=== PATIENT | female | born 1980 | race American Indian/Alaskan Native ===

== ENCOUNTER 2017-07-31 07:04 | Inpatient (IN) | payer SELFPAY ==
[2017-07-31 07:42] LABS: Basophils # (Auto) 0.1 K/mm3 (0.0-0.1); Basophils % (Auto) 1.2 % (0.0-1.8); Eosinophils # (Auto) 0.3 K/mm3 (0.0-0.4); Eosinophils % (Auto) 2.9 % (0.0-4.3); Hematocrit 39.2 % (30.3-42.9); Hemoglobin 13.2 gm/dl (10.1-14.3); Lymphocytes # (Auto) 2.9 K/mm3 (1.2-5.4); Lymphocytes % (Auto) 28.7 % (13.4-35.0); Mean Corpuscular HGB Conc 34 % (30-34); Mean Corpuscular Hemoglobin 31 pg (28-32); Mean Corpuscular Volume 90 fl (79-97); Monocytes # (Auto) 0.7 K/mm3 (0.0-0.8); Monocytes % (Auto) 7.3 % (0.0-7.3); Platelet Count 392 K/mm3 (140-440); Red Blood Count 4.34 M/mm3 (3.65-5.03); Red Cell Distribution Width 13.7 % (13.2-15.2)
[2017-07-31] MEDS ORDERED: ROXICODONE PO ONE (08:02)
[2017-07-31 08:06] LABS: Alanine Aminotransferase 11 units/L (7-56); Albumin 3.6 g/dL (3.9-5); BUN/Creatinine Ratio 14; Blood Urea Nitrogen 10 mg/dL (7-17); Calcium 8.7 mg/dL (8.4-10.2); Hemolysis Index 10
[2017-07-31 08:40] LABS: INR 0.89 (0.87-1.13)
--- NOTE | 2017-07-31 08:47 | Ultrasound Report ---
Sonogram right upper quadrant: History: Abdominal pain. Findings: Aortic diameter 1.5 cm. Normal liver. Gallbladder wall thickness 3.5 mm. Multiple calculi in the gallbladder. No intrahepatic or extrahepatic dilatation. Common bile duct diameter 2.2 mm. Right kidney 12.2 x 4.9 x 5 cm. Cortical thickness 1.3 cm. Normal pancreas. Impression Multiple calculi in thick walled gallbladder.
[2017-07-31] MEDS ORDERED: TORADOL IV ONE (09:39)
[2017-07-31] MEDS ORDERED: NACL 0.9% 500 ML 500 ML IV ONE (09:39)
[2017-07-31] MEDS ORDERED: SUBLIMAZE IV ONE (09:39)
--- NOTE | 2017-07-31 09:40 | Emergency Department Report ---
ED General Adult HPI - General Chief complaint: Abdominal Pain Stated complaint: BACK PAIN Time Seen by Provider: 07/31/17 08:01 Source: patient, RN notes reviewed Mode of arrival: Ambulatory Limitations: No Limitations - History of Present Illness Initial comments: This is a 37-year-old female. The patient is previously unknown to this provider. She does not have a primary care doctor. Patient presents to the ER with 2 complaints. Her first complaint is right-sided paralumbar back pain which radiates down to the right lower quadrant. It is achy and sharp. With palpation, range of motion. It decreases with rest. The patient also complains of right upper quadrant pain. The pain is achy. It increases with palpation. It decreases with rest. Denies chest pain, shortness of breath, urinary symptoms, saddle anesthesia. Denies constipation. -: Gradual Location: back, abdomen Radiation: abdomen, flank Severity scale (0 -10): 10 Quality: aching Consistency: intermittent Improves with: rest Worsens with: movement Associated Symptoms: other (abdominal pain, back pain). denies: confusion, chest pain, cough, diaphoresis, fever/chills, headaches, loss of appetite, malaise, nausea/vomiting, rash, seizure, shortness of breath, weakness - Related Data Home Medications Medication Instructions Recorded Confirmed Last Taken No Known Home Medications [No 07/31/17 07/31/17 Unknown Reported Home Medications] Allergies Allergy/AdvReac Type Severity Reaction Status Date / Time No Known Allergies Allergy Unverified 07/31/17 07:13 ED Review of Systems ROS: Stated complaint: BACK PAIN Other details as noted in HPI Comment: All other systems reviewed and negative Constitutional: denies: chills, fever Eyes: denies: eye pain, eye discharge, vision change ENT: denies: ear pain, throat pain Respiratory: denies: cough, shortness of breath, wheezing Cardiovascular: denies: chest pain, palpitations Endocrine: no symptoms reported Gastrointestinal: denies: abdominal pain, nausea, diarrhea Genitourinary: denies: urgency, dysuria, discharge Musculoskeletal: denies: back pain, joint swelling, arthralgia Skin: denies: rash, lesions Neurological: denies: headache, weakness, paresthesias Psychiatric: denies: anxiety, depression Hematological/Lymphatic: denies: easy bleeding, easy bruising ED Past Medical Hx - Past Medical History Previous Medical History?: Yes - Surgical History Past Surgical History?: Yes Additional Surgical History: c-sect x3, tubal ligation - Social History Smoking Status: Never Smoker Substance Use Type: None - Medications Home Medications: Home Medications Medication Instructions Recorded Confirmed Last Taken Type No Known Home Medications [No 07/31/17 07/31/17 Unknown History Reported Home Medications] ED Physical Exam - General Limitations: No Limitations General appearance: alert, in no apparent distress - Head Head exam: Present: atraumatic, normocephalic - Eye Eye exam: Present: normal appearance, EOMI. Absent: nystagmus - ENT ENT exam: Present: normal exam, normal orophraynx, mucous membranes moist, normal external ear exam - Neck Neck exam: Present: normal inspection, full ROM - Respiratory Respiratory exam: Present: normal lung sounds bilaterally. Absent: respiratory distress - Cardiovascular Cardiovascular Exam: Present: regular rate, normal rhythm, normal heart sounds. Absent: bradycardia, tachycardia, irregular rhythm, systolic murmur, diastolic murmur, rubs, gallop - GI/Abdominal GI/Abdominal exam: Present: soft, tenderness (there is no right upper quadrant tenderness. There is negative Meza sign. There is right lower quadrant tenderness to deep palpation.), normal bowel sounds. Absent: distended, guarding, rebound, rigid, pulsatile mass - External exam: Present: normal external exam, other (escorted by GIULIANA Carrillo) Speculum exam: Present: normal speculum exam. Absent: cervical discharge, vaginal bleeding Bi-manual exam: Present: normal bi-manual exam. Absent: cervical motion tendernes, adnexal tenderness, adnexal mass, uterine enlargement, uterine tenderness - Extremities Exam Extremities exam: Present: normal inspection, full ROM, normal capillary refill. Absent: pedal edema, joint swelling, calf tenderness - Back Exam Back exam: Present: normal inspection, full ROM, tenderness (there is reproducible right sided paralumbar back pain. There is reproducible right- sided paralumbar tenderness. There is no midline spinal tenderness.), paraspinal tenderness. Absent: CVA tenderness (R), vertebral tenderness - Neurological Exam Neurological exam: Present: alert, oriented X3, CN II-XII intact, normal gait, other (Extraocular movements intact. Tongue midline. No facial droop. Facial sensation intact to light touch in the V1, V2, V3 distribution bilaterally. 5 and 5 strength in 4 extremities.. Sensation is intact to light touch in 4 extremities.). Absent: motor sensory deficit - Psychiatric Psychiatric exam: Present: normal affect, normal mood - Skin Skin exam: Present: warm, dry, intact, normal color. Absent: rash ED Course Vital Signs 07/31/17 07:06 Temperature 98.4 F Pulse Rate 79 Respiratory 18 Rate Blood Pressure 117/71 O2 Sat by Pulse 100 Oximetry - Reevaluation(s) Reevaluation #1: 07/31/17 11:06 Differential diagnosis, including but not limited to: Appendicitis, renal colic , biliary colic, pyelonephritis, cholecystitis, mechanical back pain Assessment and plan: 37-year-old female with back pain, right lower quadrant pain, right upper quadrant pain. There is right lower quadrant tenderness. There is no right upper quadrant tenderness. Gynecologic examination is benign. Ultrasound of the right upper quadrant demonstrates gallstones with a thickened gallbladder wall, with no pericholecystic fluid. The patient does not have physical exam findings consistent with a Meza sign. Pelvic ultrasound and nonpressured evidence of ovarian torsion or ovarian cyst. CT scan of the abdomen and pelvis is pending. We will discuss with general surgery. 07/31/17 11:07 Reevaluation #2: 07/31/17 12:36 CT scan negative. napper tender. Patient does not have insurance. The patient is not reliable to follow-up. Case discussed with general surgeon on-call, . She will see the patient in consultation. Empiric antibiotics ordered. The Hospital physician is paged to arrange admission. - Consultations Consultation #1: 07/31/17 13:05 Dr. Ron accepted the patient to the medical service. ED Medical Decision Making - Lab Data Result diagrams: 07/31/17 07:21 07/31/17 07:21 Vital Signs 07/31/17 07:06 Temperature 98.4 F Pulse Rate 79 Respiratory 18 Rate Blood Pressure 117/71 O2 Sat by Pulse 100 Oximetry Labs 07/31/17 07/31/17 07/31/17 07:21 07:21 07:21 WBC 9.9 RBC 4.34 Hgb 13.2 Hct 39.2 MCV 90 MCH 31 MCHC 34 RDW 13.7 Plt Count 392 Lymph % (Auto) 28.7 Harnett % (Auto) 7.3 Eos % (Auto) 2.9 Baso % (Auto) 1.2 Lymph # 2.9 Harnett # 0.7 Eos # 0.3 Baso # 0.1 Seg Neutrophils % 59.9 Seg Neutrophils # 6.0 PT INR Sodium 137 Potassium 4.5 Chloride 101.7 Carbon Dioxide 26 Anion Gap 14 BUN 10 Creatinine 0.7 Estimated GFR > 60 BUN/Creatinine Ratio 14 Glucose 125 H Calcium 8.7 Total Bilirubin 0.20 AST 16 ALT 11 Alkaline Phosphatase 70 Total Creatine Kinase Total Protein 7.2 Albumin 3.6 L Albumin/Globulin Ratio 1.0 Lipase HCG, Qual Negative Urine Color Urine Turbidity Urine pH Ur Specific [place] Urine Protein Urine Glucose (UA) Urine Ketones Urine Blood Urine Nitrite Urine Bilirubin Urine Urobilinogen Ur Leukocyte Esterase Urine WBC (Auto) Urine RBC (Auto) U Epithel Cells (Auto) Urine Bacteria (Auto) Urine Mucus 07/31/17 07/31/17 07/31/17 07:21 07:31 08:22 WBC RBC Hgb Hct MCV MCH MCHC RDW Plt Count Lymph % (Auto) Harnett % (Auto) Eos % (Auto) Baso % (Auto) Lymph # H[place]ett # Eos # Baso # Seg Neutrophils % Seg Neutrophils # PT 12.5 INR 0.89 Sodium Potassium Chloride Carbon Dioxide Anion Gap BUN Creatinine Estimated GFR BUN/Creatinine Ratio Glucose Calcium Total Bilirubin AST ALT Alkaline Phosphatase Total Creatine Kinase 169 H Total Protein Albumin Albumin/Globulin Ratio Lipase 21 HCG, Qual Urine Color Urine Turbidity Urine pH Ur Specific [place] Urine Protein Urine Glucose (UA) Urine Ketones Urine Blood Urine Nitrite Urine Bilirubin Urine Urobilinogen Ur Leukocyte Esterase Urine WBC (Auto) Urine RBC (Auto) U Epithel Cells (Auto) Urine Bacteria (Auto) Urine Mucus 07/31/17 09:15 WBC RBC Hgb Hct MCV MCH MCHC RDW Plt Count Lymph % (Auto) Harnett % (Auto) Eos % (Auto) Baso % (Auto) Lymph # Harnett # Eos # Baso # Seg Neutrophils % Seg Neutrophils # PT INR Sodium Potassium Chloride Carbon Dioxide Anion Gap BUN Creatinine Estimated GFR BUN/Creatinine Ratio Glucose Calcium Total Bilirubin AST ALT Alkaline Phosphatase Total Creatine Kinase Total Protein Albumin Albumin/Globulin Ratio Lipase HCG, Qual Urine Color Yellow Urine Turbidity Clear Urine pH 6.0 Ur Specific [place] 1.009 Urine Protein <15 mg/dl Urine Glucose (UA) Neg Urine Ketones Neg Urine Blood Neg Urine Nitrite Neg Urine Bilirubin Neg Urine Urobilinogen < 2.0 Ur Leukocyte Esterase Neg Urine WBC (Auto) 1.0 Urine RBC (Auto) 1.0 U Epithel Cells (Auto) 10.0 Urine Bacteria (Auto) 1+ Urine Mucus Few - Radiology Data Radiology results: report reviewed, image reviewed Pelvic ultrasound M Stritch no evidence of ovarian torsion. Right upper quadrant ultrasound demonstrates thickened gallbladder wall with no pericholecystic fluid, multiple gallbladder stones. Critical care attestation.: If time is entered above; I have spent that time in minutes in the direct care of this critically ill patient, excluding procedure time. ED Disposition Clinical Impression: Biliary colic Disposition: OP ADMIT IP TO THIS HOSP Is pt being admited?: Yes Condition: Good Instructions: Abdominal Pain (ED) Referrals: PRIMARY CARE, [Primary Care Provider] - 3-5 Days
[2017-07-31 09:47] LABS: Bacteria,Urine 1+ /HPF (Negative); Bilirubin,Urine NEG (Negative); Blood,Urine NEG (Negative); Color,Urine Yellow (Yellow); Mucus,Urine FEW /HPF; Protein,Urine <15 mg/dL mg/dL (Negative); Urobilinogen,Urine < 2.0 mg/dL (<2.0)
--- NOTE | 2017-07-31 10:33 | Ultrasound Report ---
Pelvic and transvaginal sonography: History: Right lower quadrant abdominal pain. Findings: Uterus rate is 1.1 x 4.2 x 5.1 cm. Endometrial thickness is 11 mm. No mass within the endometrium. No fluid. Right ovary 3.7 x 2.1 x 2.1 cm. Cyst in the right ovary measures 1.2 cm and probably represents follicle. The left ovary 2.5 x 1.5 x 1.6 cm cyst at the left ovary measures 0.9 cm. Nabothian cysts in the cervix. Impression: Bilateral ovarian cysts/follicles.
--- NOTE | 2017-07-31 12:10 | Cat Scan Report ---
CT scan of abdomen and pelvis with IV contrast: History: Right lower quadrant pain. Findings: Normal lung bases. No pleural pericardial effusion. Normal liver spleen pancreas and gallbladder. Normal venous kidney parenchyma and bladder. No free intraperitoneal fluid or air. No evidence of adenopathy. Normal. Gaseous colon with moderate volume stool in colon. No significant bowel distention. Normal appendix. No evidence of diverticulitis. Impression: Gaseous colon with stool in colon. No evidence of appendicitis or diverticulitis.
[2017-07-31] MEDS ORDERED: ZOSYN/NS 4.5GM/100ML 4.5 GM/100 ML VIAL IV SCH (13:00)
--- NOTE | 2017-07-31 13:00 | History and Physical Report ---
History of Present Illness Chief complaint: My stomach hurts History of present illness: 37 YO Female with Obesity, presents to ED for evaluation. Pt states that she has experienced right sided abdominal pain for the past 3 days with persistent symptoms over the same time frame. Pt states that pain is 10/10, localized to the right side and radiates to the right flank, achy, sharp, worsening with movement. Pt seen and evaluated in ED and found to have symptomatic cholelithiasis. Surgery consulted in ED for surgical intervention. Pt denies fever, chills, CP, Palpitations, productive cough, hematemesis, ingestion of food/water from new/different sources. Past History Past Medical History: other (Obesity) Past Surgical History: , Other (tubal ligation) Social history: single Family history: hypertension Medications and Allergies Allergies Allergy/AdvReac Type Severity Reaction Status Date / Time No Known Allergies Allergy Unverified 07/31/17 07:13 Home Medications Medication Instructions Recorded Confirmed Last Taken Type No Known Home Medications [No 07/31/17 07/31/17 Unknown History Reported Home Medications] Active Meds: Active Medications Piperacillin Sod/Tazobactam Sod (Zosyn/Ns 4.5gm/100ml) 4.5 gm in 100 mls @ 200 mls/hr IV ONCE ELDA Review of Systems Constitutional: no weight loss, no weight gain, no fever, no chills Ears, nose, mouth and throat: no ear pain, no ear discharge, no tinnitis, no decreased hearing, no nose pain, no nasal congestion Breasts: no change in shape, no swelling, no mass Cardiovascular: no chest pain, no orthopnea, no palpitations, no rapid/ irregular heart beat, no edema, no syncope Respiratory: no cough, no cough with sputum, no excessive sputum, no hemoptysis , no shortness of breath Gastrointestinal: abdominal pain, no nausea, no vomiting, no constipation, no hematemesis, no coffee ground emesis, no BRBPR, no melena, no hematochezia, no loss of appetite Genitourinary Female: flank pain, no pelvic pain, no menorrhagia, no dysuria, no urinary frequency, no urgency Rectal: no pain, no incontinence, no bleeding Musculoskeletal: no neck stiffness, no neck pain, no shooting arm pain, no arm numbness/tingling, no low back pain Integumentary: no rash, no pruritis, no redness, no sores, no wounds, no jaundice, no boils Neurological: no head injury, no transient paralysis, no paralysis, no weakness , no parathesias, no numbness, no tingling, no seizures, no syncope, no vertigo , no headaches, no migraines Psychiatric: no anxiety, no memory loss, no change in sleep habits, no sleep disturbances, no insomnia, no hypersomnia, no change in appetite, no change in libido Endocrine: no cold intolerance, no heat intolerance, no polyphagia, no excessive thirst, no polydipsia, no polyuria, no nocturia, no excessive sweating Hematologic/Lymphatic: no easy bruising, no easy bleeding, no lymphadenopathy, no lymphedema Allergic/Immunologic: no urticaria, no allergic rhinitis, no wheezing, no persistent infections, no anaphylaxis Exam - Constitutional Vitals: Temp Pulse Resp BP Pulse Ox 98.4 F 79 18 117/71 100 07/31/17 07:06 07/31/17 07:06 07/31/17 07:06 07/31/17 07:06 07/31/17 07:06 General appearance: Present: mild distress - EENT Eyes: Present: PERRL ENT: hearing intact, clear oral mucosa - Neck Neck: Present: supple, normal ROM - Respiratory Respiratory effort: normal Respiratory: bilateral: CTA - Cardiovascular Heart Sounds: Present: S1 & S2. Absent: rub, click - Extremities Extremities: pulses symmetrical, No edema Peripheral Pulses: within normal limits - Abdominal General gastrointestinal: Present: soft, tender, non-distended, normal bowel sounds. Absent: mass, hernia Localized gastrointestinal: tender: RUQ Female genitourinary: Present: normal - Integumentary Integumentary: Present: clear, warm, dry - Musculoskeletal Musculoskeletal: gait normal, strength equal bilaterally - Psychiatric Psychiatric: appropriate mood/affect, intact judgment & insight - Neurologic Neurologic: CNII-XII intact, moves all extremities Results - Labs CBC & Chem 7: 07/31/17 07:21 07/31/17 07:21 Labs: Abnormal lab results 07/31/17 07/31/17 Range/Units 07:21 07:31 Glucose 125 H (65-100) mg/dL Total Creatine Kinase 169 H (30-135) units/L Albumin 3.6 L (3.9-5) g/dL Assessment and Plan - Patient Problems (1) Symptomatic cholelithiasis Current Visit: Yes Status: Acute Plan to address problem: IV antibiotics, IVF resuscitation, surgery consulted in ED, serial abdominal exam, bowel rest (2) Obesity hypoventilation syndrome Current Visit: Yes Status: Acute Plan to address problem: supplemental oxygen, nebulizer therpay, NIPPV as clinically indicated, incentive spirometry (3) DVT prophylaxis Current Visit: Yes Status: Acute Plan to address problem: scd to BLE while in bed
[2017-07-31] MEDS ORDERED: SODIUM CHLORIDE FLUSH SYRINGE 10 ML IV PRN (16:50)
[2017-07-31] MEDS ORDERED: ZOFRAN IV PRN (16:50)
[2017-07-31] MEDS ORDERED: PROVENTIL IH PRN (16:50)
--- NOTE | 2017-07-31 21:41 | Consultation ---
History of Present Illness Consult date: 07/31/17 Chief complaint: abd pain - History of present illness History of present illness: 37 yo F with hx of gallstones presents to the ER with c/o RUQ abdominal pain radiating to her R upper back which started earlier today. The patient states she has had intermittent pain like this in the past after eating. The pain is sharp. No alleviating factors. No f/c, cp, sob. + nausea but no emesis. The patient's pain persisted despite pain medications in the ER. Past History Past Medical History: other (Obesity, cholelithiasis) Past Surgical History: , Other (tubal ligation) Social history: single Family history: hypertension Medications and Allergies Allergies Allergy/AdvReac Type Severity Reaction Status Date / Time No Known Allergies Allergy Unverified 07/31/17 07:13 Home Medications Medication Instructions Recorded Confirmed Last Taken Type No Known Home Medications [No 07/31/17 07/31/17 Unknown History Reported Home Medications] Active Meds: Active Medications Albuterol (Proventil) 2.5 mg IH Q4HRT PRN PRN Reason: Shortness Of Breath Piperacillin Sod/Tazobactam Sod (Zosyn/Ns 4.5gm/100ml) 4.5 gm in 100 mls @ 200 mls/hr IV ONCE ELDA Morphine Sulfate (Morphine) 2 mg IV Q4H PRN PRN Reason: Pain, Moderate (4-6) Ondansetron HCl (Zofran) 4 mg IV Q8H PRN PRN Reason: Nausea And Vomiting Sodium Chloride (Sodium Chloride Flush Syringe 10 Ml) 10 ml IV BID ELDA Sodium Chloride (Sodium Chloride Flush Syringe 10 Ml) 10 ml IV PRN PRN PRN Reason: LINE FLUSH Review of Systems All systems: negative (10 point ROS performed and negative except for that listed in HPI) Exam Vital Signs Temp Pulse Resp BP Pulse Ox 98.4 F 79 18 117/71 100 07/31/17 07:06 07/31/17 07:06 07/31/17 07:06 07/31/17 07:06 07/31/17 07:06 Narrative exam: Gen: AAOx3. NAD ENT: no scleral icterus or conjunctival pallor CV: S1, S2+ Resp: even and unlabored Abd: soft, ND, + TTP RUQ, no r/r/g Ext: no c/c/e Results - Labs 07/31/17 07:21 07/31/17 07:21 Abnormal lab results 07/31/17 07/31/17 Range/Units 07:21 07:31 Glucose 125 H (65-100) mg/dL Total Creatine Kinase 169 H (30-135) units/L Albumin 3.6 L (3.9-5) g/dL Diabetes panel 07/31/17 Range/Units 07:21 Sodium 137 (137-145) mmol/L Potassium 4.5 (3.6-5.0) mmol/L Chloride 101.7 (98-107) mmol/L Carbon Dioxide 26 (22-30) mmol/L BUN 10 (7-17) mg/dL Creatinine 0.7 (0.7-1.2) mg/dL Glucose 125 H (65-100) mg/dL Calcium 8.7 (8.4-10.2) mg/dL AST 16 (5-40) units/L ALT 11 (7-56) units/L Alkaline Phosphatase 70 (35-129) units/L Total Protein 7.2 (6.3-8.2) g/dL Albumin 3.6 L (3.9-5) g/dL Calcium panel 07/31/17 Range/Units 07:21 Calcium 8.7 (8.4-10.2) mg/dL Albumin 3.6 L (3.9-5) g/dL Pituitary panel 07/31/17 Range/Units 07:21 Sodium 137 (137-145) mmol/L Potassium 4.5 (3.6-5.0) mmol/L Chloride 101.7 (98-107) mmol/L Carbon Dioxide 26 (22-30) mmol/L BUN 10 (7-17) mg/dL Creatinine 0.7 (0.7-1.2) mg/dL Glucose 125 H (65-100) mg/dL Calcium 8.7 (8.4-10.2) mg/dL Adrenal panel 07/31/17 Range/Units 07:21 Sodium 137 (137-145) mmol/L Potassium 4.5 (3.6-5.0) mmol/L Chloride 101.7 (98-107) mmol/L Carbon Dioxide 26 (22-30) mmol/L BUN 10 (7-17) mg/dL Creatinine 0.7 (0.7-1.2) mg/dL Glucose 125 H (65-100) mg/dL Calcium 8.7 (8.4-10.2) mg/dL Total Bilirubin 0.20 (0.1-1.2) mg/dL AST 16 (5-40) units/L ALT 11 (7-56) units/L Alkaline Phosphatase 70 (35-129) units/L Total Protein 7.2 (6.3-8.2) g/dL Albumin 3.6 L (3.9-5) g/dL - Imaging CT scan - abdomen: report reviewed, image reviewed CT scan - pelvis: report reviewed, image reviewed US - abdomen: report reviewed, image reviewed US - pelvic: report reviewed, image reviewed Assessment and Plan 37 yo F with symptomatic cholelithiasis and likely chronic cholecystitis Plan: 1. NPo p MN 2. gentle IVF 3. IV zosyn given in ER 4. prn pain and nausea control 5. for cholecystectomy tomorrow, all risks/benefits/alternatives to surgery discussed and questions answered. Consent signed and placed on chart. Thank you for this consultation, please call with questions or concerns.
[2017-07-31] MEDS: SODIUM CHLORIDE FLUSH SYRINGE 10 ML IV SCH (21:43)
[2017-07-31] MEDS ORDERED: D5W/0.45% NACL/KCL 10 MEQ 10 MEQ/1,000 ML BAG IV SCH (22:00)
[2017-07-31] MEDS: ZOSYN/NS 4.5GM/100ML 4.5 GM/100 ML VIAL IV SCH (22:15)
[2017-08-01] MEDS: ZOSYN/NS 4.5GM/100ML 4.5 GM/100 ML VIAL IV SCH ×2 (05:54→14:06)
[2017-08-01] MEDS: MORPHINE IV PRN ×2 (09:04→19:13)
[2017-08-01] MEDS: SODIUM CHLORIDE FLUSH SYRINGE 10 ML IV SCH ×2 (12:04→22:47)
--- NOTE | 2017-08-01 12:46 | Anesthesia Consultation ---
Anesthesia Consult and Med Hx Date of service: 08/01/17 - Airway Anesthetic Teeth Evaluation: Caps, Crowns ROM Head & Neck: Adequate Mental/Hyoid Distance: Adequate Mallampati Class: Class III Intubation Access Assessment: Probably Good - Pulmonary Exam CTA: Yes - Cardiac Exam Cardiac Exam: RRR - Pre-Operative Health Status ASA Pre-Surgery Classification: ASA2 Proposed Anesthetic Plan: General - Pulmonary Hx Asthma: No Hx Pneumonia: No Hx Sleep Apnea: No (high risk) - Other Systems Hx Obesity: Yes - Additional Comments Anesthesia Medical History Comments: acute cholecystitis
--- NOTE | 2017-08-01 12:46 | Anesthesia Day of Surgery ---
Anesthesia Day of Surgery - Day of Surgery Patient Examined: Yes Patient H&P Reviewed: Yes Patient is NPO: Yes
[2017-08-01] MEDS ORDERED: DILAUDID IV PRN (12:47)
[2017-08-01] MEDS ORDERED: PEPCID IV NR (13:00)
[2017-08-01] MEDS ORDERED: TRANSDERM-SCOP TD NR (13:00)
[2017-08-01] MEDS: NACL 0.9% 1000 ML 1,000 ML IV SCH ×2 (13:19→17:49)
[2017-08-01] MEDS: VERSED IV NR ×2 (13:25→14:03)
[2017-08-01] MEDS ORDERED: XYLOCAINE 1% 20 mL ONE (14:50)
[2017-08-01] MEDS ORDERED: MARCAINE 0.5% 30 ML INFILTRATI ONE (14:50)
[2017-08-01] MEDS ORDERED: DILAUDID ONE (15:02)
[2017-08-01] MEDS ORDERED: DIPRIVAN 10 MG/ML IV ONE (15:02)
[2017-08-01] MEDS ORDERED: XYLOCAINE MPF 2% ONE (15:03)
[2017-08-01] MEDS ORDERED: ZEMURON IV ONE (15:10)
[2017-08-01] MEDS ORDERED: QUELICIN ONE (15:10)
[2017-08-01] MEDS ORDERED: DECADRON ONE (15:36)
[2017-08-01] MEDS ORDERED: ZOFRAN ONE (15:36)
--- NOTE | 2017-08-01 16:45 | Post Operative Note ---
Date of procedure: 08/01/17 (Dictation#[id number]) Pre-op diagnosis: Chronic Cholecystitis Post-op diagnosis: same Findings: normal appearing GB with thickening and adhesions. Procedure: Lap jamal Anesthesia: LEANNA Surgeon: KENNETH LEE Estimated blood loss: minimal Pathology: list (GB) Specimen disposition: to lab Condition: stable Disposition: PACU
--- NOTE | 2017-08-01 17:02 | Progress Note ---
Assessment and Plan /Symptomatic cholelithiasis IV antibiotics, IVF resuscitation, surgery consulted in ED, plan for cholecystectomy today, npo now /Morbid Obesity nutrition recommendation on discharge / DVT prophylaxis scd to BLE while in bed Physical exam: General appearance: Present: mild distress - EENT Eyes: Present: PERRL ENT: hearing intact, clear oral mucosa - Neck Neck: Present: supple, normal ROM - Respiratory Respiratory effort: normal Respiratory: bilateral: CTA - Cardiovascular Heart Sounds: Present: S1 & S2. Absent: rub, click - Extremities Extremities: pulses symmetrical, No edema Peripheral Pulses: within normal limits - Abdominal General gastrointestinal: Present: soft, tender, non-distended, normal bowel sounds. Absent: mass, hernia Localized gastrointestinal: tender: RUQ Female genitourinary: Present: normal - Integumentary Integumentary: Present: clear, warm, dry - Musculoskeletal Musculoskeletal: gait normal, strength equal bilaterally - Psychiatric Psychiatric: appropriate mood/affect, intact judgment & insight - Neurologic Neurologic: CNII-XII intact, moves all extremities Subjective Date of service: 08/01/17 Interval history: pt seen and examined plan for cholecystectomy today Objective - Constitutional Vitals: Vital Signs - 12hr 08/01/17 08/01/17 08/01/17 07:44 11:59 12:35 Temperature 98.5 F 98.2 F 98.4 F Pulse Rate 64 71 60 Respiratory 20 20 18 Rate Blood Pressure 124/76 123/72 122/77 O2 Sat by Pulse 100 98 98 Oximetry - Labs CBC & Chem 7: 07/31/17 07:21 07/31/17 07:21
[2017-08-01] MEDS: TORADOL IV SCH (17:51)
--- NOTE | 2017-08-01 22:00 | Operative Report ---
PREOPERATIVE DIAGNOSIS: Chronic cholecystitis. POSTOPERATIVE DIAGNOSIS: Chronic cholecystitis. PROCEDURE: Laparoscopic cholecystectomy. ATTENDING PHYSICIAN: Vijaya Caro MD ANESTHESIA: General. ESTIMATED BLOOD LOSS: Minimal. FLUIDS: 900 mL crystalloid. FINDINGS: Fairly normal appearing gallbladder that was slightly thickened and had some mild adhesions to the liver. SPECIMENS: Gallbladder. DRAINS: None. COMPLICATIONS: None. DISPOSITION: Stable, transferred to Recovery Room. INDICATIONS: This is a 37-year-old female who presented with right upper quadrant pain. Labs were found to be normal. Gallbladder was found to be thickened on ultrasound. The patient was assessed to have chronic cholecystitis. The patient was assessed to be in need for cholecystectomy. Procedure, risks, benefits were explained to the patient. Risks included but were not limited to infection, bleeding, pain, injury to surrounding structures, possible need for further surgery in the future. The patient understood and consented. OPERATIVE NOTE: The patient was brought to the operating room and placed on the table in supine position. After adequate general anesthesia was established, the patient was prepped and draped in the usual sterile fashion. The patient was already on antibiotics. SCDs were in place. I began by placing a Veress needle in the left upper quadrant. I was able to insufflate the abdomen on the first attempt. Because of her prior abdominal surgery and what appeared to be a lower midline scar, I decided to place a 5 mm port on the right side of the abdomen. Using the Optiview technique, I entered the peritoneal cavity safely. I could see the Veress needle did not injure any structures underneath it. Veress needle was removed. There were some mild adhesions in the lower midline, but they were below the umbilicus. The umbilicus appeared to have a small hernia; therefore, I decided to place the 12 mm port through that area. I made a supraumbilical curvilinear incision and then inserted the port through the umbilical hernia. Under direct vision, we placed a 5 mm port in the epigastric area and another one in between the two 5 mm ports parallel to the subcostal margin. We began by elevating the gallbladder over the liver edge. Using the Harmonic scalpel, I dissected a very large critical view as well as the cystic duct and cystic artery out. The cystic duct could be clearly seen going into the gallbladder. With a large critical view, I felt very comfortable that we identified the structures clearly and we were not dealing with some tented up common bile duct. I then placed three clips distally on the cystic duct, one proximally in relation to the gallbladder, and two clips distally on cystic artery in relation to the gallbladder divided both with Harmonic scalpel. I took the gallbladder off the bed with the Harmonic scalpel. We encountered no bleeding, no drainage of bile. The gallbladder was placed in the EndoCatch bag and left in the side. I examined the gallbladder bed, it was completely hemostatic. I examined where the clips were. We could clearly see the clips in the cystic duct and artery. There was no bleeding. There was no leakage of bile. Everything appeared very good. We then removed the EndoCatch bag from the umbilical port site. Because of the size of the fascial defect, I decided to close it using an open technique. I used a 0 Vicryl stitch and closed it with a [id number] stitch technique, appeared to have good closure of that fascial defect. We removed the ports under direct vision. Abdomen was desufflated. A 40 mL of 0.5% Marcaine and 1% lidocaine were injected into the port sites. We closed with subcuticular layer of each incision with a 4-0 Monocryl subcuticular stitch. The skin was cleaned and dried. Dermabond was placed. The patient tolerated the procedure well. There were no complications. All counts were correct at the end of the case. JOB# [id number] SUKHI/MARISEL
[2017-08-01] MEDS: ROXICODONE PO PRN (22:45)
[2017-08-02] MEDS: TORADOL IV SCH ×3 (00:20→12:36)
[2017-08-02] MEDS: MORPHINE IV PRN (03:33)
[2017-08-02] MEDS: NACL 0.9% 1000 ML 1,000 ML IV SCH (03:34)
[2017-08-02 07:54] VITALS: BP 122/75
[2017-08-02] MEDS: ROXICODONE PO PRN (09:51)
[2017-08-02] MEDS: SODIUM CHLORIDE FLUSH SYRINGE 10 ML IV SCH (09:51)
--- NOTE | 2017-08-02 11:15 | Progress Note ---
Assessment and Plan - Patient Problems (1) Cholecystitis Status: Acute Plan to address problem: Pt stable. s/p lap jamal. ok to d/c home from my standpoint. Had long discussion on post-op instructions and restrictions. RTW in 2 weeks. - Diet as tolerated. - no strenuous activity or heavy lifting. - scripts on chart - work release on chart - f/u 2 weeks in office. Please call with questions. Subjective Date of service: 08/02/17 Patient Reports: Positive: no new complaints, other (had a rough night getting meds and getting comfortable. Now feels better. Ready to go home.) Objective Vital Signs - 12hr 08/02/17 08/02/17 08/02/17 07:45 08:47 09:51 Temperature 98.9 F Pulse Rate 103 H Respiratory 20 20 20 Rate Blood Pressure 122/75 O2 Sat by Pulse 95 Oximetry - General physical appearance no distress, no pain - Respiratory normal expansion, normal respiratory effort - Abdomen soft, tender (incisional pain), not guarding, not rigid - Psychiatric oriented to time, oriented to person, oriented to place, speech is normal, memory intact - Labs 07/31/17 07:21 07/31/17 07:21
--- NOTE | 2017-08-02 12:33 | Discharge Summary ---
Providers - Providers Date of Admission: 07/31/17 16:50 Date of discharge: 08/02/17 Attending physician: WILLIAM YEPEZ 07/31/17 12:35 Consult to Physician [CONS] Urgent Comment: Consulting Provider: ERWIN PARIKH Physician Instructions: Reason For Exam: abd pain Primary care physician: BRICK CARRIER Hospitalization Condition: Good Hospital course: Discharge diagnosis: /Symptomatic cholelithiasis s/p cholecystectomy today, tolering diet /Morbid Obesity nutrition recommendation on discharge / DVT prophylaxis scd to BLE while in bed Physical exam: General appearance: Present: mild distress - EENT Eyes: Present: PERRL ENT: hearing intact, clear oral mucosa - Neck Neck: Present: supple, normal ROM - Respiratory Respiratory effort: normal Respiratory: bilateral: CTA - Cardiovascular Heart Sounds: Present: S1 & S2. Absent: rub, click - Extremities Extremities: pulses symmetrical, No edema Peripheral Pulses: within normal limits - Abdominal General gastrointestinal: Present: soft, tender, non-distended, normal bowel sounds. Absent: mass, hernia Localized gastrointestinal: tender: RUQ Female genitourinary: Present: normal - Integumentary Integumentary: Present: clear, warm, dry - Musculoskeletal Musculoskeletal: gait normal, strength equal bilaterally - Psychiatric Psychiatric: appropriate mood/affect, intact judgment & insight - Neurologic Neurologic: CNII-XII intact, moves all extremities Disposition: DC-01 TO HOME OR SELFCARE Time spent for discharge: 32 minutes Core Measure Documentation - Palliative Care Palliative Care/ Comfort Measures: Not Applicable - Core Measures Any of the following diagnoses?: none Exam - Constitutional Vitals: Temp Pulse Resp BP Pulse Ox 98.9 F 103 H 20 122/75 95 08/02/17 07:45 08/02/17 07:45 08/02/17 09:51 08/02/17 07:45 08/02/17 07:45 Plan Activity: advance as tolerated Weight Bearing Status: Non-Weight Bearing Diet: low fat, low salt Follow up with: KENNETH LEE MD [Staff Physician] - 14 Days PRIMARY CARE, [Primary Care Provider] - 3-5 Days Forms: Work/School Release Form Prescriptions: Ketorolac [Toradol] 10 mg PO Q6H PRN #12 tablet PRN Reason: Pain oxyCODONE [Roxicodone TAB] 5 mg PO Q6H PRN #30 tablet PRN Reason: Pain, Moderate (4-6)
== END 2017-08-02 15:30 | disposition home or self-care (01) | DRG 418 ==
LOC: ED 07:04 → 3A 16:50
PROVIDERS: ADMIT Internal Medicine; ATTEND Internal Medicine
PROC: 0FT44ZZ Resection of Gallbladder, Percutaneous Endoscopic Approach (ICD-10-PCS; principal; 2017-08-01)
DX: K80.10 Calculus of gallbladder with chronic cholecystitis without obstruction (principal); Z68.41 Body mass index [BMI] 40.0-44.9, adult; E66.2 Morbid (severe) obesity with alveolar hypoventilation; Z98.51 Tubal ligation status; Z82.49 Family history of ischemic heart disease and other diseases of the circulatory system
CPT/HCPCS: 36415; 74177; 76705; 76830; 80053; 81001; 82550; 83690; 84703; 85025; 85610; 87086; 87210; 88304; 93975; 94760; 96374; 96375; J0330; J1100; J1170; J1885; J2250; J2270; J2405; J2543; J2704; J3010; J7030; J7040; Q9967

== ENCOUNTER 2017-10-23 07:59 | Emergency (ER) | payer SELFPAY ==
[2017-10-23 08:10] VITALS: BP 130/79
--- NOTE | 2017-10-23 09:36 | Emergency Department Report ---
ED Lower Extremity HPI - General Chief Complaint: Medical Clearance Stated Complaint: BLOOD CLOT Time Seen by Provider: 10/23/17 09:06 Source: patient Mode of arrival: Ambulatory Limitations: No Limitations - History of Present Illness Initial Comments: This is a 37-year-old patient here reported that she fell last Friday and injured her left leg and now having redness, pain and swelling and she is worried about having clots. Complaint: leg injury Onset/Timin -: week(s) Injury: Leg: Left (painful swelling and redness after fall and) Type of Injury: other (fall) Place: street/outdoors Severity: severe Severity scale (0 -10): 8 Improves With: rest Worsens With: weight bearing, movement, palpation Context: fall Associated Symptoms: swelling, numbness, ambulatory. denies: snap/pop sensation , tingling, unable to bear weight, able to partially bear weight Treatments Prior to Arrival: cold therapy - Related Data Previous Rx's Medication Instructions Recorded Last Taken Type Ketorolac [Toradol] 10 mg PO Q6H PRN #12 tablet 08/02/17 Unknown Rx oxyCODONE [Roxicodone TAB] 5 mg PO Q6H PRN #30 tablet 08/02/17 Unknown Rx Ibuprofen [Motrin] 600 mg PO Q8H PRN #12 tablet 10/23/17 Unknown Rx Allergies Allergy/AdvReac Type Severity Reaction Status Date / Time No Known Allergies Allergy Unverified 07/31/17 07:13 ED Review of Systems ROS: Stated complaint: BLOOD CLOT Other details as noted in HPI Constitutional: denies: chills, fever Respiratory: denies: cough, shortness of breath, SOB with exertion, SOB at rest , stridor, wheezing Cardiovascular: denies: chest pain, palpitations, edema, syncope, paroxysmal nocturnal dyspnea Gastrointestinal: denies: abdominal pain, nausea, vomiting, diarrhea, hematemesis Genitourinary: denies: urgency, dysuria, discharge Musculoskeletal: arthralgia. denies: back pain, joint swelling Skin: denies: rash, lesions Neurological: denies: headache, numbness, paresthesias, confusion, abnormal gait , vertigo Hematological/Lymphatic: denies: easy bleeding, easy bruising ED Past Medical Hx - Past Medical History Previous Medical History?: No Hx Diabetes: No Hx Asthma: No - Surgical History Past Surgical History?: Yes Additional Surgical History: c-sect x3, tubal ligation, gall bladder - Family History Family history: hypertension - Social History Smoking Status: Current Every Day Smoker Substance Use Type: None - Medications Home Medications: Home Medications Medication Instructions Recorded Confirmed Last Taken Type Ketorolac [Toradol] 10 mg PO Q6H PRN #12 tablet 08/02/17 Unknown Rx oxyCODONE [Roxicodone TAB] 5 mg PO Q6H PRN #30 tablet 08/02/17 Unknown Rx Ibuprofen [Motrin] 600 mg PO Q8H PRN #12 tablet 10/23/17 Unknown Rx ED Physical Exam - General Limitations: No Limitations General appearance: alert, in no apparent distress - Head Head exam: Present: atraumatic, normocephalic, normal inspection - Eye Eye exam: Present: normal appearance, PERRL, EOMI Pupils: Present: normal accommodation - ENT ENT exam: Present: normal exam, normal orophraynx, mucous membranes moist - Neck Neck exam: Present: normal inspection, full ROM. Absent: tenderness, meningismus, lymphadenopathy - Respiratory Respiratory exam: Present: normal lung sounds bilaterally. Absent: respiratory distress, chest wall tenderness - Cardiovascular Cardiovascular Exam: Present: regular rate, normal rhythm, normal heart sounds. Absent: systolic murmur, diastolic murmur - GI/Abdominal GI/Abdominal exam: Present: soft, normal bowel sounds. Absent: distended, tenderness, guarding, rebound, rigid - Extremities Exam Extremities exam: Present: normal inspection, full ROM, tenderness (left calf and lateral, inner leg), normal capillary refill, pedal edema (left calf in her , lateral leg), calf tenderness (left calf), other (no clubbing or cyanosis. + 2 pulses to all extremities. Mild swelling to left calf and leg with erythema. No neurovascular compromise. +5 strength in all extremities). Absent: joint swelling - Expanded Lower Extremity Exam Left Hip exam: Present: normal inspection, full ROM, pelvic stability. Absent: tenderness, swelling, abrasion, laceration, ecchymosis, deformity, crepidus, dislocation, erythema, external rotation, internal rotation, shortening Upper Leg exam: Present: normal inspection, full ROM. Absent: tenderness, swelling, abrasion, laceration, ecchymosis, deformity, crepidus, dislocation, erythema Knee exam: Present: normal inspection, full ROM, full knee extension. Absent: tenderness, swelling, abrasion, laceration, ecchymosis, deformity, crepidus, dislocation, erythema, effusion, pain w/ pronation/supination, posterior draw sign, pain/laxity with valgus, pain/laxity with varus Lower Leg exam: Present: normal inspection, full ROM, tenderness, swelling, ecchymosis, erythema. Absent: abrasion, laceration, deformity, crepidus, dislocation, palpable cord, Radha's sign Ankle exam: Present: normal inspection, full ROM. Absent: abrasion, laceration , ecchymosis, deformity, crepidus, dislocation, erythema, anterior draw sign Foot/Toe exam: Present: normal inspection, full ROM. Absent: tenderness, swelling, abrasion, laceration, ecchymosis, deformity, crepidus, dislocation, erythema, amputation, puncture wound, foreign body, calcaneal tenderness, tenderness at base of 5th metatarsal, nail avulsion, subungual hematoma Neuro vascular tendon exam: Present: no vascular compromise. Absent: pulse deficit, abnormal cap refill, motor deficit, sensory deficit, tendon deficit, extremity cold to touch, pallor, abnormal 2-point discrimination, decreased fine /light touch, foot drop, peroneal nerve deficit, significant pain with passive ROM of distal joint Gait: Positive: observed and limited by pain - Back Exam Back exam: Present: normal inspection, full ROM, other (ambulates without any difficulties). Absent: tenderness, CVA tenderness (R), CVA tenderness (L), muscle spasm, paraspinal tenderness, vertebral tenderness, rash noted - Neurological Exam Neurological exam: Present: alert, oriented X3, normal gait, reflexes normal. Absent: motor sensory deficit - Psychiatric Psychiatric exam: Present: normal affect, normal mood - Skin Skin exam: Present: warm, dry, intact, rash, erythema (left leg), ecchymosis ( left leg). Absent: normal color ED Course Vital Signs 10/23/17 08:03 Temperature 98.6 F Pulse Rate 89 Respiratory 16 Rate Blood Pressure 130/79 O2 Sat by Pulse 100 Oximetry - Reevaluation(s) Reevaluation #1: 10/23/17 11:19 Patient stable throughout ED course. ED Lower Extremity MDM - Radiology Data Radiology results: report reviewed 10/23/17 10:35 - Radiology Dept. Note by CIPRIANO VERAS [facility] Num: [id number] : 1980 Patient Age: 37 VASCULAR LAB.PRELIMINARY REPORT. LLE VENOUS DUPLEX DONE. NO EVIDENCE OF DVT/SVT IN VESSELS VISUALIZED. SOFT TISSUE CHANGES SEEN IN THE LT.PROXIMAL CALF. Initialized on 10/23/17 10:35 - END OF NOTE Final report to follow - Medical Decision Making This is a 37-year-old female here reports that she fell last Friday from stairs and have numbness in warmness to her left leg especially behind her calf. She is due to be evaluated because she thinks she has a blood clot. She has no risk factors for blood clots. Patient was examined and found to have erythema, ecchymotic area to left leg that is tender to palpate. Ultrasound Doppler left lower extremity reveals no DVT or SVT but some soft tissue swelling noted. Ultrasound result was explained to patient and she was understanding. I also discussed diagnosis with her and told her that she needs to rest ice compress and elevate affected area over the next 72 hours to facilitate fast healing. Patient with contusion to left leg secondary to injury. Patient will be discharged home on Motrin and referred back to her primary care physician for evaluation and follow-up. RICE therapy discussed Discharged home in stable condition, vital signs are stable she is afebrile. Patient is nontoxic in appearance. - Differential Diagnosis DVT, contusion, MSK pain Critical care attestation.: If time is entered above; I have spent that time in minutes in the direct care of this critically ill patient, excluding procedure time. ED Disposition Clinical Impression: Left leg pain Contusion of left leg Qualifiers: Encounter type: initial encounter Qualified Code(s): S80.12XA - Contusion of left lower leg, initial encounter Disposition: DC-01 TO HOME OR SELFCARE Is pt being admited?: No Does the pt Need Aspirin: No Condition: Stable Instructions: Arthralgia (ED), Contusion in Adults (ED), RICE Therapy (ED) Additional Instructions: Follow-up the primary care physician as discussed Follow Discharge instruction in Rice therapy If swelling, redness and pain, increases to left leg and proximally distally please return to the emergency room GARETH Referrals: PRIMARY CAREMD [Primary Care Provider] - 10/27/17 [facility] [Outside] - 10/27/17 Forms: Work/School Release Form(ED)
--- NOTE | 2017-10-24 13:18 | Vascular Lab Report ---
Left Lower Extremity Venous Duplex Study: Reason for Exam: Pain and swelling of the left lower extremity. Comments on the Right: A limited duplex study was done of the proximal veins of the right lower extremity. All veins visualized are freely compressible without evidence of internal echogenicity. Flow is spontaneous and phasic throughout. No evidence of acute or chronic thrombus is seen in any of the vessels visualized. Comments on the Left: All veins visualized are freely compressible without evidence of internal echogenicity. Flow is spontaneous and phasic throughout. No evidence of acute or chronic thrombus is seen in any of the vessels visualized. Nonspecific soft tissue changes are seen in the proximal medial calf. This may be a ruptured Allen's cyst. Impression: No evidence of acute or chronic deep venous thrombosis in the left lower extremity. Possible ruptured Allen's cyst near the left knee.
== END 2017-10-23 11:32 | disposition home or self-care (01) ==
LOC: ED 07:59
DX: S80.12XA Contusion of left lower leg, initial encounter (principal); F17.200 Nicotine dependence, unspecified, uncomplicated; Z98.51 Tubal ligation status; W19.XXXA Unspecified fall, initial encounter; Y93.89 Activity, other specified; Y92.488 Other paved roadways as the place of occurrence of the external cause; Y99.8 Other external cause status
CPT/HCPCS: 99283

== ENCOUNTER 2017-10-29 11:13 | Emergency (ER) | payer SELFPAY ==
[2017-10-29 11:20] VITALS: BP 129/70
--- NOTE | 2017-10-29 11:52 | Emergency Department Report ---
ED Lower Extremity HPI - General Chief Complaint: Extremity Injury, Lower Stated Complaint: BLISTER Time Seen by Provider: 10/29/17 11:34 Source: patient Mode of arrival: Ambulatory Limitations: No Limitations - History of Present Illness Initial Comments: This 37-year-old -Swedish female who presents with left lower extremity pain and swelling from a fall 1 week ago. Patient states she was seen here last week had a ultrasound which was negative for DVT but now she is starting to have increased pain to the left lower extremity and bump to left medial calf. Patient states yesterday she noticed the bump on the left calf with warmth and swelling around area. She is now concerned this may be formation of a clot. Her employer sent her over because of the swelling around area and purple and she was having difficulty standing while at work. Patient denies numbness or tingling, recent injury, and fever. MD Complaint: leg injury (left) Onset/Timin -: days(s) Injury: Leg: Left Type of Injury: unknown Place: home Severity: moderate Severity scale (0 -10): 7 Improves With: NSAID Worsens With: weight bearing, movement Context: fall Associated Symptoms: swelling, able to partially bear weight, ambulatory. denies: snap/pop sensation, numbness, tingling, unable to bear weight Treatments Prior to Arrival: NSAIDS - Related Data Previous Rx's Medication Instructions Recorded Last Taken Type Ketorolac [Toradol] 10 mg PO Q6H PRN #12 tablet 08/02/17 Unknown Rx oxyCODONE [Roxicodone TAB] 5 mg PO Q6H PRN #30 tablet 08/02/17 Unknown Rx Ibuprofen [Motrin] 600 mg PO Q8H PRN #12 tablet 10/23/17 Unknown Rx Clindamycin HCl 300 mg PO TID #21 capsule 10/29/17 Unknown Rx Ibuprofen [Motrin 800 MG tab] 800 mg PO Q8HR PRN #15 tablet 10/29/17 Unknown Rx Allergies Allergy/AdvReac Type Severity Reaction Status Date / Time No Known Allergies Allergy Unverified 07/31/17 07:13 ED Review of Systems ROS: Stated complaint: BLISTER Other details as noted in HPI Constitutional: denies: chills, fever Respiratory: denies: cough, shortness of breath, wheezing Cardiovascular: denies: chest pain, palpitations Gastrointestinal: denies: abdominal pain, nausea, diarrhea Skin: lesions (abscess to the left lateral). denies: rash Neurological: denies: headache, weakness, paresthesias Psychiatric: denies: anxiety, depression ED Past Medical Hx - Past Medical History Hx Diabetes: No Hx Asthma: No - Surgical History Past Surgical History?: Yes Additional Surgical History: c-sect x3, tubal ligation, gall bladder - Social History Smoking Status: Current Every Day Smoker Substance Use Type: None - Medications Home Medications: Home Medications Medication Instructions Recorded Confirmed Last Taken Type Ketorolac [Toradol] 10 mg PO Q6H PRN #12 tablet 08/02/17 Unknown Rx oxyCODONE [Roxicodone TAB] 5 mg PO Q6H PRN #30 tablet 08/02/17 Unknown Rx Ibuprofen [Motrin] 600 mg PO Q8H PRN #12 tablet 10/23/17 Unknown Rx Clindamycin HCl 300 mg PO TID #21 capsule 10/29/17 Unknown Rx Ibuprofen [Motrin 800 MG tab] 800 mg PO Q8HR PRN #15 tablet 10/29/17 Unknown Rx ED Physical Exam - General Limitations: No Limitations General appearance: alert, in no apparent distress - Respiratory Respiratory exam: Present: normal lung sounds bilaterally. Absent: respiratory distress - Cardiovascular Cardiovascular Exam: Present: regular rate, normal rhythm. Absent: systolic murmur, diastolic murmur, rubs, gallop - GI/Abdominal GI/Abdominal exam: Present: soft, normal bowel sounds - Extremities Exam Extremities exam: Present: normal inspection, full ROM, normal capillary refill. Absent: pedal edema, joint swelling, calf tenderness - Expanded Lower Extremity Exam Left Hip exam: Present: normal inspection, full ROM Upper Leg exam: Present: normal inspection, full ROM Knee exam: Present: normal inspection, full ROM Lower Leg exam: Present: full ROM, tenderness (2 cm erythematous nodule to left medial calf, warm and tender to palpation, no surrounding cellulitis), swelling , erythema. Absent: abrasion, laceration, ecchymosis, deformity, crepidus, dislocation, palpable cord, Radha's sign Ankle exam: Present: normal inspection, full ROM Foot/Toe exam: Present: normal inspection, full ROM Neuro vascular tendon exam: Present: no vascular compromise Gait: Positive: observed and normal - Neurological Exam Neurological exam: Present: alert, oriented X3 - Psychiatric Psychiatric exam: Present: normal affect, normal mood - Skin Skin exam: Present: warm, dry, intact, normal color. Absent: rash ED Course Vital Signs 10/29/17 11:18 Temperature 98.9 F Pulse Rate 78 Blood Pressure 129/70 O2 Sat by Pulse 98 Oximetry ED Lower Extremity MDM - Medical Decision Making This is a 37 y.o. female that presents with a painful abscess to left medial calf for 1 day. No history of prior abscess. Patient is stable and examined by me. Physical assessment of 2 cm fluctuance nodule to left medial calf. No acute signs of distress noted. Given tramadol 50 mg po once in ER. I&D refer to note. Discussed plan to start clindamycin and ibuprofen with patient. Educated patient on follow up plan to have packing removed and wound reassessed in 2-3 days. Patient agrees to ED plan of care. Discharged home and follow up with PCP in 2-3 days. Critical care attestation.: If time is entered above; I have spent that time in minutes in the direct care of this critically ill patient, excluding procedure time. ED Disposition Clinical Impression: Abscess of left leg excluding foot Disposition: - TO HOME OR SELFCARE Is pt being admited?: No Does the pt Need Aspirin: No Condition: Stable Instructions: Abscess (ED), Incision and Drainage (ED) Additional Instructions: Keep packing in place for 2-3 days. Return to ER or f/u with PCP to have packing removed and wound reassessed in 48 hours. Complete full round of clindamycin antibiotic as prescribed. Follow up with PCP or ER in 2-3 days. Return to ER if foul smelling discharge, swelling, or severe pain to wound. Prescriptions: Clindamycin HCl 300 mg PO TID #21 capsule Ibuprofen [Motrin 800 MG tab] 800 mg PO Q8HR PRN #15 tablet PRN Reason: Pain , Severe (7-10) Referrals: [facility] [Outside] - 3-5 Days [facility] [Outside] - 3-5 Days [facility] [address] [Outside] - 3-5 Days Forms: Work/School Release Form(ED) Time of Disposition: 12:50 Print Language: SPANISH I & D Note - I & D Note I & D Note: The area was prepared and draped in the usual, sterile manner. The site was anesthetized with 2% lidocaine without epinephrine. A linear incision along the local skin lines was made and the purulent material expressed. The abcess was explored thoroughly and sequestered pockets were opened. Bleeding was minimal. Packing: idodoform. Followup: The patient tolerated the procedure well without complications. Standard post-procedure care was explained and return precautions are given.
[2017-10-29] MEDS ORDERED: XYLOCAINE 2% INFILTRATI ONE (11:54)
[2017-10-29] MEDS ORDERED: ULTRAM PO ONE (12:11)
[2017-10-29] MEDS ORDERED: BOOSTRIX IM ONE (12:52)
== END 2017-10-29 13:40 | disposition home or self-care (01) ==
LOC: ED 11:13
DX: L02.416 Cutaneous abscess of left lower limb (principal); F17.200 Nicotine dependence, unspecified, uncomplicated
CPT/HCPCS: 90471; 90715; 99282

== ENCOUNTER 2017-10-31 15:51 | Emergency (ER) | payer SELFPAY ==
--- NOTE | 2017-10-31 18:14 | Emergency Department Report ---
Blank Doc - Documentation Documentation: Patient is a 37-year-old [place] female who is presenting with some increased swelling near her I&D site. Patient states that the I&D site on her left lower extremity is slightly more swollen now. Patient was coming in today anyway for packing removal. Packing came out on its own spontaneously. Just distal to the I&D site patient has some increased swelling in the medial calf. Patient states that the pain is improving and she is taking clindamycin as an antibiotic. Focused physical exam there is some swelling and fluctuance present. Using a bedside ultrasound that was able to appreciate a large fluid collection just approximately a centimeter and a half below the skin. This is distal to the I& D site. Patient will be sent to a treatment room for I&D. A
[2017-10-31] MEDS ORDERED: CLEOCIN IM ONE (18:41)
--- NOTE | 2017-10-31 18:41 | Emergency Department Report ---
ED Recheck HPI - General Chief Complaint: Laceration/Recheck/Suture Stated Complaint: PACKING REMOVED Time Seen by Provider: 10/31/17 17:59 Source: patient, family Mode of arrival: Ambulatory Limitations: No Limitations - History of Present Illness Initial Comments: Patient was here on 10/29/2017 for incision and drainage of abscess to the left proximal leg below the knee laterally. She had procedure done and packing was placed and she came back today but reported that packing fell out this morning. She is important swelling to left lateral leg below. That was packed. Report redness and pain 8/10 and feels sore. She was clindamycin andn Motrin and was told to come back today for packing removal. Patient was screened by Dr. Whitley Wilhelm and he did ultrasound of area that is new. Red and swollen and report there is abscess to area. Patient reports pain is worse with palpation. Better at rest. She states that she started taking in antibiotic 2 days ago and that the clindamycin is not working because she cannot swallow it properly. She said it stuck in her chest. Her tetanus vaccine is up-to-date. Denies any numbness or tingling to extremities. She says she had ultrasound done of the left lower extremity because initially when she came in and there was bump there but they did not find any clots. Since that she sustained injury from her leg going through her neighbors floor and she developed not and eventually became infected. She denies any fever or chills. Patient was initially seen on 10/23/2017 after she injured her left leg on 10/17/2017. Had Doppler ultrasound done on 10/23/2017 which was negative and she returned to the hospital and was seen again for abscess to her left leg which was incision and drained and was told to come back today. Complaint: wound re-check Onset/Timin (injured left leg) -: week(s) Initial Visit For: cellulitis, abscess, other (patient had incision and drainage with packing done 10/29/2017.) Returns Today for: wound recheck, cellulitis follow-up, persistent/worsening Symptoms Since Prior Visit: worsening swelling, worsening redness Context: planned re-check Associated Symptoms: none Treatments Prior to Arrival: Given Antibiotics on, Given Pain Meds on - Related Data Previous Rx's Medication Instructions Recorded Last Taken Type Ketorolac [Toradol] 10 mg PO Q6H PRN #12 tablet 08/02/17 Unknown Rx oxyCODONE [Roxicodone TAB] 5 mg PO Q6H PRN #30 tablet 08/02/17 Unknown Rx Ibuprofen [Motrin] 600 mg PO Q8H PRN #12 tablet 10/23/17 Unknown Rx Ibuprofen [Motrin 800 MG tab] 800 mg PO Q8HR PRN #15 tablet 10/29/17 Unknown Rx Sulfamethoxazole/Trimethoprim 1 each PO BID 10 Days #20 tablet 10/31/17 Unknown Rx [Bactrim DS TAB] Allergies Allergy/AdvReac Type Severity Reaction Status Date / Time No Known Allergies Allergy Unverified 07/31/17 07:13 ED Review of Systems ROS: Stated complaint: PACKING REMOVED Other details as noted in HPI Constitutional: denies: chills, fever ENT: denies: throat pain Respiratory: denies: cough, shortness of breath, SOB with exertion, SOB at rest , stridor, wheezing Cardiovascular: denies: chest pain, palpitations, dyspnea on exertion, edema, syncope, paroxysmal nocturnal dyspnea Gastrointestinal: denies: abdominal pain, nausea, vomiting, diarrhea Genitourinary: denies: discharge Musculoskeletal: arthralgia. denies: back pain, joint swelling, myalgia Skin: rash, change in color (redness, swelling distal to wound was incision and drained.), other (wound with packing in that fell out.). denies: lesions Neurological: denies: weakness, numbness, paresthesias, abnormal gait, vertigo ED Past Medical Hx - Past Medical History Previous Medical History?: No Hx Diabetes: No Hx Asthma: No - Surgical History Past Surgical History?: Yes Additional Surgical History: c-sect x3, tubal ligation, gall bladder - Family History Family history: hypertension - Social History Smoking Status: Current Some Day Smoker Substance Use Type: None - Medications Home Medications: Home Medications Medication Instructions Recorded Confirmed Last Taken Type Ketorolac [Toradol] 10 mg PO Q6H PRN #12 tablet 08/02/17 Unknown Rx oxyCODONE [Roxicodone TAB] 5 mg PO Q6H PRN #30 tablet 08/02/17 Unknown Rx Ibuprofen [Motrin] 600 mg PO Q8H PRN #12 tablet 10/23/17 Unknown Rx Ibuprofen [Motrin 800 MG tab] 800 mg PO Q8HR PRN #15 tablet 10/29/17 Unknown Rx Sulfamethoxazole/Trimethoprim 1 each PO BID 10 Days #20 tablet 10/31/17 Unknown Rx [Bactrim DS TAB] ED Physical Exam - General Limitations: No Limitations General appearance: alert, in no apparent distress - Head Head exam: Present: atraumatic, normocephalic, normal inspection - Eye Eye exam: Present: normal appearance, PERRL, EOMI Pupils: Present: normal accommodation - ENT ENT exam: Present: normal exam, normal orophraynx, mucous membranes moist - Neck Neck exam: Present: normal inspection, full ROM. Absent: tenderness, lymphadenopathy - Respiratory Respiratory exam: Present: normal lung sounds bilaterally. Absent: respiratory distress, chest wall tenderness - Cardiovascular Cardiovascular Exam: Present: regular rate, normal rhythm, normal heart sounds. Absent: systolic murmur, diastolic murmur - GI/Abdominal GI/Abdominal exam: Present: soft, normal bowel sounds. Absent: tenderness - Extremities Exam Extremities exam: Present: normal inspection, full ROM (full range of motion but pain with moving the left leg), tenderness (. Left leg proximally), normal capillary refill, other (No cce. + 2 pulses in all extremities, no neurovascular compromise except patient with redness swelling and tenderness to left, lateral inner, proximal leg and also open wound from incision and drainage on 10/31/2017). Absent: pedal edema, joint swelling, calf tenderness - Expanded Lower Extremity Exam Right Hip exam: Present: normal inspection, full ROM, pelvic stability. Absent: tenderness, abrasion, laceration, ecchymosis, deformity Upper Leg exam: Present: normal inspection, full ROM. Absent: tenderness, swelling, abrasion, laceration, ecchymosis, deformity, crepidus, dislocation, erythema Knee exam: Present: normal inspection, full ROM, full knee extension. Absent: tenderness, swelling, abrasion, laceration, ecchymosis, deformity, crepidus, dislocation, erythema, effusion, pain w/ pronation/supination, posterior draw sign, pain/laxity with valgus, pain/laxity with varus Lower Leg exam: Present: full ROM (painful with movement of left leg), tenderness (left proximal leg, inner, lateral), swelling (proximal, anterolateral), laceration (open wound to proximal, lateral left leg below knee. ). Absent: normal inspection, abrasion, ecchymosis, deformity, crepidus, dislocation, erythema, palpable cord, Radha's sign Ankle exam: Present: normal inspection, full ROM. Absent: tenderness, swelling , abrasion, laceration, ecchymosis, deformity, crepidus, dislocation, erythema Foot/Toe exam: Present: normal inspection, full ROM. Absent: tenderness, swelling, abrasion, laceration, ecchymosis, deformity, crepidus, dislocation, erythema, amputation, puncture wound, foreign body, calcaneal tenderness, tenderness at base of 5th metatarsal, nail avulsion, subungual hematoma Neuro vascular tendon exam: Present: no vascular compromise. Absent: pulse deficit, abnormal cap refill, motor deficit, sensory deficit, tendon deficit, extremity cold to touch, pallor, abnormal 2-point discrimination, decreased fine /light touch, foot drop, peroneal nerve deficit, significant pain with passive ROM of distal joint Gait: Positive: observed and limited by pain - Neurological Exam Neurological exam: Present: alert, oriented X3, normal gait - Psychiatric Psychiatric exam: Present: normal affect, normal mood - Skin Skin exam: Present: warm, dry, erythema (left proximal anterolateral leg), other (open wounds approximately quarter size to proximal leg lateral below-knee ). Absent: normal color, rash, abrasion, ecchymosis - Expanded Skin Exam Expanded Type of lesion: Present: abscess (4 cm x 4 cm erythema area to proximal left, lateral inner leg. Red, indurated and mostly fluctuant.), other (patient would open wound that was incision and drained 2 days ago that is about 1 cm, superficial with scant drainage. No signs of infection at site. This is separate from new area with abscess.) Distribution of rash: LLE (proximal leg) Description of rash: Present: size (4 x 4 centimeter of erythema with 2 cm induration and fluctuance), tenderness, erythematous (4 x 4 centimeter), swelling, discharge (scant discharge from site that was incision and drained.), fluctuant, indurated. Absent: crusting ED Course Vital Signs 10/31/17 10/31/17 15:56 19:12 Temperature 98.3 F Pulse Rate 78 Respiratory 18 16 Rate Blood Pressure 125/45 O2 Sat by Pulse 99 Oximetry - Reevaluation(s) Reevaluation #1: 10/31/17 20:35 Patient given clindamycin 600 mg IM in the emergency room to cover abscess and cellulitis. She was also given Percocet 5/325 mg 2 tablets because she wanted to have something for procedure started. Please see procedure note for details on incision and drainage. - I & D Left Lateral Proximal Leg Type of Procedure: Complex Site: left proximal, in her lateral Blade Size: 11 (leg) I & D Procedure: betadine prep, sterile drapes applied, sterile dressing applied , gauze wick placed Progress: Procedure: Patient with abscess, cellulitic area to left proximal inner outer leg. Positive induration with erythema and mostly fluctuant. On the sterile procedure, area cleansed with iodine and saline. 10 mL of 2% Xylocaine injected inside abscess. #11 blade used to make 1 cm incision to side. Hemostat used to explore area at approximately 2 cm in depth and approximately 10 mL of clear pus without any odor came from side. Wound culture collected and sent. Collin transit iodine and normal saline. 1 inch iodoform packing used to pack the wound and nonadhesive gauze dressing followed by sterile gauze dressing and tape placed the site. Patient tetanus shot is up-to-date and she tolerated procedure well ED Recheck MDM - Differential Diagnosis Cellultitis Recheck - Medical Decision Making This is a 37-year-old female who came in for wound recheck and packing removal that was done 2 days ago. Prior to today she came in on 726 because she had left leg injury and she had Doppler ultrasound of her left lower extremity which revealed no SVT or DVT. She came in on 10/29/2017 for abscess which was incision and drainage and packed and was told to come back today for removal of packing. Patient reported that packing fell out. So she came with open wound that is approximated times size and appear to be healing. Patient started taking clindamycin 2 days ago but she says that she cannot really swallow it or digest that. She is not having any fever or chills. She is reporting new site below area that was incision and drainable redness, swelling and painful. She is here to be evaluated. Patient was seen by Dr. Bc Wilhelm and screened. He uses ultrasound to look at left leg wound and reported that it is approximately 1-1/2 cm in depth of fluid-filled area. Area incision and drained and new pack in place. Please refer to procedure note for detail. Dress in place to old site that was previously incision and drain. Patient told to return in 4 days after being on antibiotic for removal of packing in and evaluation performed. She was given clindamycin 600 milligrams IM and in emergency room for cellulitis and abscess. Percocet 5/325 2 tablets given prior to procedure and she forcibly relieves her pain. Incision and drainage done under sterile procedure. Patient tolerated procedure well and she is aware that she needs to follow up with her primary care physician in 3 days. She is also to stop clindamycin and to start Bactrim DS. A/P Wound recheck-wound was incision and drained and packed 2 days ago is healing well and packing had fell out. New abscess and cellulitic area to the left proximal leg, laterally-incision and drainage procedure done. See seizure note for detail. Patient to return in 4 days to have packing removed and for reevaluation. Clindamycin discontinued because patient not able to tolerate and patient started on Bactrim DS. Wound culture sent. I discussed the patient at if she developed increased redness, swelling, pain, numbness or tingling in, fever and/or chills and/or restriction of movement to the left leg to return to emergency immediately otherwise follow up with her primary care physician in 3 days and then follow-up with emergency room in 4 days for removal of packing. Patient voiced understanding of discharge instructions Discharged home in stable condition with her family with prescription for Bactrim DS and her clindamycin was discontinued. Pain is controlled and she is in stable condition. Vital signs stable she is afebrile. Critical care attestation.: If time is entered above; I have spent that time in minutes in the direct care of this critically ill patient, excluding procedure time. ED Disposition Clinical Impression: Cellulitis and abscess of left leg, Arthralgia of left lower leg, Encounter for incision and drainage procedure, Encounter for wound re-check Disposition: TO HOME OR SELFCARE Is pt being admited?: No Does the pt Need Aspirin: No Condition: Stable Instructions: Cellulitis (ED), Abscess Incision and Drainage (ED), Wound Healing and Your Diet (ED), Arthralgia (ED) Additional Instructions: Please see discharge instruction in acute wound care Apply warm compresses to affected area 4 times a day to facilitate softening and increased drainage return to emergency room in 4 days for removal of packing Keep affected area clean and dry Continue taking Motrin as previously prescribed and please take this medication with food as it can cause nausea and stomach upset. Stop taking clindamycin and start Bactrim DS for infection twice daily for 10 days. Please take this medication with food and/or probiotic yogurt Return to the emergency room if, he developed fever, chills, increased pain and drainage from site, nausea and vomited, increase in redness and/or weakness. I Prescriptions: Sulfamethoxazole/Trimethoprim [Bactrim DS TAB] 1 each PO BID 10 Days #20 tablet Referrals: PRIMARY CARE, [Primary Care Provider] - 2-3 Days [facility] [Outside] - 2-3 Days follow-up in, emergency room in 4 days [Other] - 11/04/17 (Follow-up in emergency room in 4 days for packing removal.) Forms: Accompanied Note, Work/School Release Form(ED)
[2017-10-31] MEDS ORDERED: PERCOCET 5/325 PO ONE (19:09)
[2017-10-31 20:54] VITALS: BP 126/62
== END 2017-10-31 20:54 | disposition home or self-care (01) ==
LOC: ED 15:51
DX: L03.116 Cellulitis of left lower limb (principal); Z98.51 Tubal ligation status; Z72.0 Tobacco use
CPT/HCPCS: 87116; 96372

== ENCOUNTER 2017-11-04 08:53 | Emergency (ER) | payer SELFPAY ==
[2017-11-04 09:35] VITALS: BP 128/80
--- NOTE | 2017-11-04 10:55 | Emergency Department Report ---
Suture/Staple Removal - HPI Chief Complaint: Skin/Abscess/Foreign Body Stated Complaint: PACKING REMOVED Time Seen by Provider: 11/04/17 10:31 When Sutures or [place] Placed: 3 days ago ED Review of Systems ROS: Stated complaint: PACKING REMOVED Other details as noted in HPI Comment: has no complaints Constitutional: no symptoms reported Respiratory: no symptoms reported Endocrine: no symptoms reported ED Past Medical Hx - Past Medical History Previous Medical History?: No Hx Diabetes: No Hx Asthma: No - Surgical History Past Surgical History?: Yes Hx Cholecystectomy: Yes Additional Surgical History: c-sect x3, tubal ligation, gall bladder - Social History Smoking Status: Light Tobacco Smoker Substance Use Type: None - Medications Home Medications: Home Medications Medication Instructions Recorded Confirmed Last Taken Type Ketorolac [Toradol] 10 mg PO Q6H PRN #12 tablet 08/02/17 Unknown Rx oxyCODONE [Roxicodone TAB] 5 mg PO Q6H PRN #30 tablet 08/02/17 Unknown Rx Ibuprofen [Motrin] 600 mg PO Q8H PRN #12 tablet 10/23/17 Unknown Rx Ibuprofen [Motrin 800 MG tab] 800 mg PO Q8HR PRN #15 tablet 10/29/17 Unknown Rx Sulfamethoxazole/Trimethoprim 1 each PO BID 10 Days #20 tablet 10/31/17 Unknown Rx [Bactrim DS TAB] Suture Removal Exam - Exam General: Vital signs noted. No distress. Alert and acting appropriately. Wound: No Pathologic Erythema, No Tenderness, No Drainage, No Pus, No Wound Dehiscence Other Systems: All other systems reviewed and are unremarkable. ED Course Vital Signs 11/04/17 09:32 Temperature 98.2 F Pulse Rate 68 Respiratory 16 Rate Blood Pressure 128/80 O2 Sat by Pulse 100 Oximetry ED Recheck [facility] - Core Measures Measure Exclusions: not indicated - Differential Diagnosis Wound Recheck, Suture/Staple Removal - Medical Decision Making Patient presents for packing removal on her left lower extremity. Packing was removed without difficulty. She reports her symptoms are improving. There is no redness, pus or streaking. She has no other complaints. The remainder of her physical exam is unremarkable. She can be discharged with expected management. Extraocular movements intact. Tongue midline. No facial droop. Facial sensation intact to light touch in the V1, V2, V3 distribution bilaterally. 5 and 5 strength in 4 extremities.. Sensation is intact to light touch in 4 extremities. Gait within normal limits. 2+ pulses noted in the bilateral upper, lower extremities. Compartments soft. No long bony tenderness. The pelvis is stable. On the left lower extremity, there is a 1 cm healing wound, with no redness, pus , streaking. S1, S2, regular rate and rhythm. Breath sounds clear to auscultation bilaterally. Abdomen soft, nontender, nondistended, with no tenderness. Critical care attestation.: If time is entered above; I have spent that time in minutes in the direct care of this critically ill patient, excluding procedure time. ED Disposition Clinical Impression: Wound check, abscess Disposition: DC- TO HOME OR SELFCARE Is pt being admited?: No Does the pt Need Aspirin: No Condition: Stable Instructions: Acute Wound Care (ED) Additional Instructions: Apply warm compresses to the affected area as often as as needed. Wash the area with gentle soap and water every 12-24 hours. Keep the area covered otherwise. Return to the ER right away with new pain, worsening pain, migration of pain, redness, pus, streaking, discharge. Follow up with her primary care doctor or wound care center within the next 3-4 weeks. Referrals: PRIMARY CARE [Primary Care Provider] - 3-5 Days [facility] [Outside] - 3-5 Days [facility] [Provider Group] - 3-5 Days
== END 2017-11-04 11:48 | disposition home or self-care (01) ==
LOC: ED 08:53
DX: Z48.01 Encounter for change or removal of surgical wound dressing (principal); T14.8XXD Other injury of unspecified body region, subsequent encounter; X58.XXXD Exposure to other specified factors, subsequent encounter

== ENCOUNTER 2019-03-08 11:44 | Emergency (ER) | payer SELFPAY ==
[2019-03-08 12:16] VITALS: BP 131/108
--- NOTE | 2019-03-08 12:22 | Emergency Department Report ---
ED Lower Extremity HPI - General Chief Complaint: Extremity Problem,Nontraumatic Stated Complaint: LFT KNEE INJURY Time Seen by Provider: 03/08/19 12:13 Source: patient Mode of arrival: Ambulatory Limitations: No Limitations - History of Present Illness Initial Comments: This is a 39-year-old female nontoxic, well nourished in appearance, no acute signs of distress presents to the ED with c/o of chronic left knee pain. Patient stated had an injury to left knee last year but never followed up with orthopedic. Patient denies any new trauma or injuries. Denies decreased ROM, joint swelling, redness, or abnormal gait. Denies any fever, chills, nausea, vomiting, headache, stiff neck, chest pain or shortness of breath. Patient denies any numbness or tingling. Denies any allergies. -: year(s) Injury: Knee: Left Severity scale (0 -10): 3 Improves With: immobilization Worsens With: movement Associated Symptoms: ambulatory. denies: snap/pop sensation, swelling, numbness, tingling, unable to bear weight, able to partially bear weight - Related Data Previous Rx's Medication Instructions Recorded Last Taken Type Ketorolac [Toradol] 10 mg PO Q6H PRN #12 tablet 08/02/17 Unknown Rx oxyCODONE [roxiCODONE] 5 mg PO Q6H PRN #30 tablet 08/02/17 Unknown Rx Ibuprofen [Motrin] 600 mg PO Q8H PRN #12 tablet 10/23/17 Unknown Rx Ibuprofen [Motrin 800 MG tab] 800 mg PO Q8HR PRN #15 tablet 10/29/17 Unknown Rx Sulfamethoxazole/Trimethoprim 1 each PO BID 10 Days #20 tablet 10/31/17 Unknown Rx [Bactrim DS TAB] Allergies Allergy/AdvReac Type Severity Reaction Status Date / Time No Known Allergies Allergy Unverified 07/31/17 07:13 ED Review of Systems ROS: Stated complaint: LFT KNEE INJURY Other details as noted in HPI Constitutional: denies: chills, fever Eyes: denies: eye pain, eye discharge, vision change ENT: denies: ear pain, throat pain Respiratory: denies: cough, shortness of breath, wheezing Cardiovascular: denies: chest pain, palpitations Endocrine: no symptoms reported Gastrointestinal: denies: abdominal pain, nausea, diarrhea Genitourinary: denies: urgency, dysuria, discharge Musculoskeletal: denies: back pain, joint swelling, arthralgia Skin: denies: rash, lesions Neurological: denies: headache, weakness, paresthesias Psychiatric: denies: anxiety, depression Hematological/Lymphatic: denies: easy bleeding, easy bruising ED Past Medical Hx - Past Medical History Previous Medical History?: No Hx Diabetes: No Hx Asthma: No - Surgical History Past Surgical History?: Yes Hx Cholecystectomy: Yes Additional Surgical History: c-sect x3, tubal ligation, gall bladder - Social History Smoking Status: Never Smoker Substance Use Type: None - Medications Home Medications: Home Medications Medication Instructions Recorded Confirmed Last Taken Type Ketorolac [Toradol] 10 mg PO Q6H PRN #12 tablet 08/02/17 Unknown Rx oxyCODONE [roxiCODONE] 5 mg PO Q6H PRN #30 tablet 08/02/17 Unknown Rx Ibuprofen [Motrin] 600 mg PO Q8H PRN #12 tablet 10/23/17 Unknown Rx Ibuprofen [Motrin 800 MG tab] 800 mg PO Q8HR PRN #15 tablet 10/29/17 Unknown Rx Sulfamethoxazole/Trimethoprim 1 each PO BID 10 Days #20 tablet 10/31/17 Unknown Rx [Bactrim DS TAB] ED Physical Exam - General Limitations: No Limitations General appearance: alert, in no apparent distress - Head Head exam: Present: atraumatic, normocephalic - Extremities Exam Extremities exam: Present: normal inspection, full ROM, normal capillary refill. Absent: tenderness, joint swelling, calf tenderness - Expanded Lower Extremity Exam Left Hip exam: Present: normal inspection, full ROM. Absent: tenderness, swelling Upper Leg exam: Present: normal inspection, full ROM. Absent: tenderness, swelling Knee exam: Present: normal inspection, full ROM, full knee extension. Absent: tenderness, swelling, abrasion, laceration, ecchymosis, deformity, crepidus, dislocation, erythema, effusion, pain w/ pronation/supination, posterior draw sign, pain/laxity with valgus, pain/laxity with varus Lower Leg exam: Present: normal inspection, full ROM. Absent: tenderness, swelling Ankle exam: Present: normal inspection, full ROM. Absent: tenderness, swelling Foot/Toe exam: Present: normal inspection, full ROM. Absent: tenderness, swelling Neuro vascular tendon exam: Present: no vascular compromise Gait: Positive: observed and normal - Back Exam Back exam: Present: normal inspection, full ROM - Neurological Exam Neurological exam: Present: alert, oriented X3, normal gait - Psychiatric Psychiatric exam: Present: normal affect, normal mood - Skin Skin exam: Present: warm, dry, intact, normal color. Absent: rash ED Course Vital Signs 03/08/19 12:15 Temperature 98.6 F Pulse Rate 86 Respiratory 18 Rate Blood Pressure 131/108 O2 Sat by Pulse 99 Oximetry - Reevaluation(s) Reevaluation #1: 03/08/19 12:22 Patient is speaking in full sentences with no signs of distress noted. ED Lower Extremity MDM - Medical Decision Making This is a 39-year-old female that presents with chronic knee pain. Patient is stable and was examined by me. Exam does not show any acute conditions. No joint effusion, no redness, no decreased ROM. Normal gait. Patient was instructed to Follow-up with a orthopedic doctor in 3-5 days or if symptoms worsen and continue return to emergency room as soon as possible. At time of discharge, the patient does not seem toxic or ill in appearance. No acute signs of distress noted. Patient agrees to discharge treatment plan of care. No further questions noted by the patient. Critical care attestation.: If time is entered above; I have spent that time in minutes in the direct care of this critically ill patient, excluding procedure time. ED Disposition Clinical Impression: Chronic knee pain Qualifiers: Laterality: left Qualified Code(s): M25.562 - Pain in left knee; G89.29 - Other chronic pain Disposition: MED SCREENING EXAM-LEFT Is pt being admited?: No Does the pt Need Aspirin: No Condition: Stable Additional Instructions: Follow-up with a orthopedic doctor in 3-5 days or if symptoms worsen and continue return to emergency room as soon as possible. Referrals: PRIMARY CARE, [Referring] - 3-5 Days MAY HSIEH MD [Staff Physician] - 3-5 Days
== END 2019-03-08 12:30 | disposition left against medical advice (07) ==
LOC: ED 11:44
DX: G89.29 Other chronic pain (principal); M25.562 Pain in left knee; Z90.49 Acquired absence of other specified parts of digestive tract; Z98.51 Tubal ligation status; Z79.899 Other long term (current) drug therapy
CPT/HCPCS: 99281

== ENCOUNTER 2020-03-01 20:33 | Emergency (ER) | payer SELFPAY ==
[2020-03-01 20:55] VITALS: BP 119/60
[2020-03-01] MEDS ORDERED: ASPIRIN 325 MG TAB PO ONE (20:56)
[2020-03-01 21:21] LABS: Basophils % (Auto) 0.5 % (0.0-1.8); Eosinophils # (Auto) 0.3 K/mm3 (0.0-0.4); Eosinophils % (Auto) 2.8 % (0.0-4.3); Hematocrit 38.4 % (30.3-42.9); Hemoglobin 12.7 gm/dl (10.1-14.3); Lymphocytes # (Auto) 3.2 K/mm3 (1.2-5.4); Lymphocytes % (Auto) 34.3 % (13.4-35.0); Mean Corpuscular HGB Conc 33 % (30-34); Mean Corpuscular Volume 88 fl (79-97); Monocytes # (Auto) 0.8 K/mm3 (0.0-0.8); Monocytes % (Auto) 8.7 % (0.0-7.3); Platelet Count 436 K/mm3 (140-440); Red Blood Count 4.35 M/mm3 (3.65-5.03); Red Cell Distribution Width 14.2 % (13.2-15.2)
[2020-03-01 21:38] LABS: Blood Urea Nitrogen 11 mg/dL (7-17); Calcium 9.9 mg/dL (8.4-10.2); Hemolysis Index 15
--- NOTE | 2020-03-01 21:39 | XRay Report ---
CHEST 2 VIEWS INDICATION / CLINICAL INFORMATION: Chest Pain. COMPARISON: None available. FINDINGS: SUPPORT DEVICES: None. HEART / MEDIASTINUM: No significant abnormality. LUNGS / PLEURA: No significant pulmonary or pleural abnormality. No pneumothorax. ADDITIONAL FINDINGS: No significant additional findings. IMPRESSION: No acute cardiopulmonary abnormality. Signer Name: Eric Quintero MD Signed: 03/01/2020 9:35 PM Workstation Name: [id number]
[2020-03-01 21:40] LABS: BUN/Creatinine Ratio 16
[2020-03-01] MEDS ORDERED: KETOROLAC 30 MG/1 ML INJ IM ONE (22:23)
--- NOTE | 2020-03-01 22:29 | Emergency Department Report ---
ED Chest Pain HPI - General Chief Complaint: Dyspnea/Respdistress Stated Complaint: CHEST PAIN NUMBNESS Time Seen by Provider: 03/01/20 22:05 Source: patient Mode of arrival: Ambulatory Limitations: No Limitations - History of Present Illness Initial Comments: This is a 40-year-old female presents to the emergency department with a complaint of some generalized chest pain that has been going on since this morning. She describes it as a tightness, currently 6 out of 10 in intensity. Patient also says that she feels tight up in the posterior neck, upper back, and it radiates around to the chest/chest wall. She denies any shortness of breath, cough, fever, nausea, vomiting, diaphoresis. The patient denies any current headache but said that she had a headache yesterday for most of the afternoon and early evening. She denies any vision change, slurred speech, paresthesias, or any other neurological deficits. She has not taken anything for symptoms prior to presentation today. She denies any past medical history. She denies any tobacco or illicit drug use. No recent travel or sick contacts at home. No known exposure to anyone with COVID-19. She denies any family history of early cardiac disease or heart attack. - Related Data Previous Rx's Medication Instructions Recorded Last Taken Type Ketorolac [Toradol] 10 mg PO Q6H PRN #12 tablet 08/02/17 Unknown Rx oxyCODONE [roxiCODONE] 5 mg PO Q6H PRN #30 tablet 08/02/17 Unknown Rx Ibuprofen [Motrin] 600 mg PO Q8H PRN #12 tablet 10/23/17 Unknown Rx Sulfamethoxazole/Trimethoprim 1 each PO BID 10 Days #20 tablet 10/31/17 Unknown Rx [Bactrim DS TAB] Cyclobenzaprine [Flexeril] 10 mg PO TID PRN #10 tablet 03/01/20 Unknown Rx Ibuprofen [Motrin 800 MG tab] 800 mg PO Q8HR PRN #15 tablet 03/01/20 Unknown Rx Allergies Allergy/AdvReac Type Severity Reaction Status Date / Time No Known Allergies Allergy Unverified 07/31/17 07:13 Heart Score - HEART Score History: Slightly suspicious EKG: Normal Age: < 45 Risk factors: No known risk factors Troponin: < normal limit HEART Score: 0 - Critical Actions Critical Actions: 0-3 pts:0.9-1.7%risk of adverse cardiac event.Candidate for discharge ED Review of Systems ROS: Stated complaint: CHEST PAIN NUMBNESS Other details as noted in HPI Comment: All other systems reviewed and negative Constitutional: denies: chills, fever Eyes: denies: eye pain, vision change ENT: denies: ear pain, throat pain Respiratory: denies: cough, shortness of breath Cardiovascular: chest pain. denies: palpitations Gastrointestinal: denies: abdominal pain, vomiting Genitourinary: denies: dysuria, discharge Musculoskeletal: back pain, myalgia. denies: joint swelling Skin: denies: rash, lesions Neurological: headache (Yesterday, resolved). denies: weakness, paresthesias ED Past Medical Hx - Past Medical History Previous Medical History?: No Hx Diabetes: No Hx Asthma: No - Surgical History Hx Cholecystectomy: Yes Additional Surgical History: c-sect x3, tubal ligation, gall bladder - Social History Smoking Status: Never Smoker Substance Use Type: None - Medications Home Medications: Home Medications Medication Instructions Recorded Confirmed Last Taken Type Ketorolac [Toradol] 10 mg PO Q6H PRN #12 tablet 08/02/17 Unknown Rx oxyCODONE [roxiCODONE] 5 mg PO Q6H PRN #30 tablet 08/02/17 Unknown Rx Ibuprofen [Motrin] 600 mg PO Q8H PRN #12 tablet 10/23/17 Unknown Rx Sulfamethoxazole/Trimethoprim 1 each PO BID 10 Days #20 tablet 10/31/17 Unknown Rx [Bactrim DS TAB] Cyclobenzaprine [Flexeril] 10 mg PO TID PRN #10 tablet 03/01/20 Unknown Rx Ibuprofen [Motrin 800 MG tab] 800 mg PO Q8HR PRN #15 tablet 03/01/20 Unknown Rx ED Physical Exam - General Limitations: No Limitations - Other Other exam information: GENERAL: The patient is well-developed well-nourished. HENT: Normocephalic. Atraumatic. Patient has moist mucous membranes. EYES: Extraocular motions are intact. NECK: Supple. Trachea is midline. No midline tenderness to palpation. There is bilateral paraspinal tenderness to palpation with taut musculature. CHEST/LUNGS: Clear to auscultation. There is no respiratory distress noted. There is reproducible chest wall tenderness to palpation without any crepitus or deformity. HEART/CARDIOVASCULAR: Regular. There is no tachycardia. There is no murmur. ABDOMEN: Abdomen is soft, nontender. Patient has normal bowel sounds. SKIN: Skin is warm and dry. NEURO: The patient is awake, alert, and oriented. The patient is cooperative. The patient has no focal neurologic deficits. Normal speech. Cranial nerves II through XII grossly intact. MUSCULOSKELETAL: There is no tenderness or deformity. There is no limitation range of motion. There is no evidence of acute injury. BACK: No midline thoracic or lumbar tenderness to palpation. There is reproduc ible upper back tenderness to palpation, along the trapezius muscle, with associated taut musculature. ED Course Vital Signs 03/01/20 20:48 Temperature 98.6 F Pulse Rate 76 Respiratory 16 Rate Blood Pressure 119/60 O2 Sat by Pulse 97 Oximetry WILFRID score - Wilfrid Score Age > 65: (0) No Aspirin use within the Past 7 Days: (0) No 3 or more CAD Risk Factors: (0) No 2 or more Angina events in past 24 hrs: (0) No Known CAD with more than 50% Stenosis: (0) No Elevated Cardiac Markers: (0) No ST Deviation Greater than 0.5mm: (0) No WILFRID Score: 0 ED Medical Decision Making - Lab Data Result diagrams: 03/01/20 21:02 03/01/20 21:02 - EKG Data -: EKG Interpreted by Mt EKG shows normal: sinus rhythm, axis, intervals, QRS complexes, ST-T waves Rate: normal - EKG Data When compared to previous EKG there are: previous EKG unavailable Interpretation: normal EKG - Radiology Data Radiology results: image reviewed interpreted by me: Chest x-ray does not show any acute process. There are no pleural effusions, o bvious pneumonia and there is no pneumothorax. No significant cardiomegaly. - Medical Decision Making This patient presents to the emergency department with complaint of some chest discomfort that she describes as a tightness. However the patient also complains of tightness to the upper back and neck and feels that it also radiates around towards the chest. Heart and lung sounds are normal to auscultation. There is some reproducible chest wall tenderness to palpation without crepitus or deformity. The patient does have very tight musculature to the paraspinal neck and trapezius muscle. There is no focal, motor or sensory deficits and her cranial nerves are intact. EKG did not have any morphology consistent with ST elevation myocardial infarction, dysrhythmia, or ischemia. Chest x-ray does not show any pneumonia, pneumothorax, pleural effusions, or any other acute process. The patient's labs have been unremarkable including CBC, metabolic panel and a n egative troponin. The patient has no complaints of any shortness of breath. She is low on the Wells score criteria and negative on the pulmonary embolism rule out criteria. The patient was given a shot of Toradol and upon reevaluation she is feeling greatly improved. The patient has a low heart and WILFRID score. For all these reasons she appears safe for discharge home at this time and is asking for discharge home as well. The patient's contact information has been sent over to the [facility] and vascular worth, and someone from their office should be contacting her shortly for close outpatient follow-up as part of our [facility] low risk chest pain protocol. Critical Care Time: No Critical care attestation.: If time is entered above; I have spent that time in minutes in the direct care of this critically ill patient, excluding procedure time. ED Disposition Clinical Impression: Atypical chest pain, Trapezius muscle spasm Disposition: DC-01 TO HOME OR SELFCARE Is pt being admited?: No Condition: Stable Instructions: Muscle Cramps and Spasms, Nonspecific Chest Pain, Adult, Chest Pain (ED) Additional Instructions: Please follow-up with a primary care physician in the next few days. I have sent your contact information over to the [facility], and someone from their office should be contacting you shortly for close outpatient follow-up. I have also given you a referral for one of their cardiologists, Dr Samayoa, just in case. You have been prescribed a medication that is sedating and therefore should not be taken prior to driving, working, and responsible for children and in no way should be mixed with alcohol of any quantity. Return to the emergency department with any worsening of your symptoms, new or concerning symptoms not addressed during this current emergency department visit, or with any acute distress. Prescriptions: Cyclobenzaprine [Flexeril] 10 mg PO TID PRN #10 tablet PRN Reason: Muscle Spasm Ibuprofen [Motrin 800 MG tab] 800 mg PO Q8HR PRN #15 tablet PRN Reason: Pain , Severe (7-10) Referrals: JOHN QUINTANA MD [Primary Care Provider] - 2-3 Days GENE KAYE MD [Staff Physician] - 2-3 Days LEONARDO SAMAYOA MD [Staff Physician] - 2-3 Days [facility] [Provider Group] - 2-3 Days Time of Disposition: 23:34 - Assessment Assessment Interval: Baseline - Level of Consciousness 1a. Level of Consciousness: alert/keenly responsive - LOC Questions 1b. LOC Questions: answers both correctly - LOC Command 1c. LOC Commands: performs tasks correctly - Best Gaze 2. Best Gaze: normal - Visual 3. Visual: no visual loss - Facial Palsy 4. Facial Palsy: normal symmetrical movement - Motor Arm 5a. Motor Arm Left: no drift 5b. Motor Arm Right: no drift - Motor Leg 6a. Motor Leg Left: no drift 6b. Motor Leg Right: no drift - Limb Ataxia 7. Limb Ataxia: absent - Sensory 8. Sensory: normal - Best Language 9. Best Language: no aphasia - Dysarthria 10. Dysarthria: normal - Extinction and Inattention 11. Extinction/Inattention: no abnormality - Scoring Total Score: 0 Stroke Severity: No Stroke Symptoms
== END 2020-03-01 23:30 | disposition home or self-care (01) ==
LOC: ED 20:33
DX: M62.838 Other muscle spasm (principal); Z98.51 Tubal ligation status; Z98.890 Other specified postprocedural states; Z79.899 Other long term (current) drug therapy
CPT/HCPCS: 36415; 71046; 80048; 84484; 85025; 93005; 96372; 99284; J1885